=== PATIENT | female | born 1970 | race Two or more races ===

== ENCOUNTER → 2024-06-30 | Outpatient (CLI) | payer MEDICAID, SELFPAY ==
--- NOTE | 2024-06-30 13:30 | XR_ITS ---
Examination: Screening digital mammography, bilateral Computer aided detection 3-D breast Tomosynthesis, bilateral Date and time of exam: June 30, 2024 1315 hours Compared to mammograms dating to October 26, 2014 Indication: Screening Technique: Nonmagnified MLO, CC views of the breasts to been obtained, reconstructed from 3-D Tomosynthesis images. R2 computer aided detection program utilized for evaluation of suspicious masses and/or abnormal calcifications. 3-D Tomosynthesis images obtained. Findings: The breasts are heterogeneously dense, which may obscure small masses Skin lesion outer left breast Benign calcifications No interval suspicious masses Impression: BI-RADS category II: Benign Findings. Recommend 1 year follow-up mammogram.
== END | disposition home or self-care (01) ==
LOC: CDIM 13:05
PROVIDERS: Referring Provider Physician Assistant; Visit Provider Physician Assistant
DX: Z12.31 Encounter for screening mammogram for malignant neoplasm of breast (principal); R92.323 Mammographic fibroglandular density, bilateral breasts; R92.1 Mammographic calcification found on diagnostic imaging of breast
CPT/HCPCS: 77063; 77067

== ENCOUNTER → 2024-10-08 | Outpatient (CLI) | payer MEDICAID, SELFPAY ==
--- NOTE | 2024-10-08 09:16 | XR_ITS ---
Examination: Esophagram standard Fluoroscopy Upright PA chest, single view Upright soft tissue lateral neck single view 22 spot fluoroscopic films of the esophagus Exam date and time: October 08, 2024 0945 hours INDICATIONS: Heartburn difficulty swallowing one month TECHNIQUE AND FINDINGS: Upright PA chest single view demonstrates normal heart size, clear lungs Soft tissue lateral neck demonstrates no prevertebral soft tissue prominence Patient swallowed thin barium with 22 spot fluoroscopic films of the esophagus obtained Primary peristaltic esophageal waves are noted Moderate intermittent gastroesophageal reflux No constricting esophageal lesion Small sliding esophageal hernia No esophageal ulceration IMPRESSION: Moderate intermittent gastroesophageal reflux No stricture at the gastroesophageal junction
== END | disposition home or self-care (01) ==
PROVIDERS: PCP Physician Assistant; Referring Provider Physician Assistant; Visit Provider Physician Assistant
DX: K21.9 Gastro-esophageal reflux disease without esophagitis (principal); K44.9 Diaphragmatic hernia without obstruction or gangrene
CPT/HCPCS: 74220; A4649